=== PATIENT | male | born 1940 | race Caucasian/White ===

== ENCOUNTER 2018-07-16 09:09 | Day surgery (SDC) | payer OTHER, BC ==
[2018-07-13 16:05] VITALS: BMI 30.9
[2018-07-16 09:42] VITALS: TEMP 97.7
[2018-07-16] MEDS ORDERED: PROPOFOL 20 ML ONE (10:09)
[2018-07-16] MEDS ORDERED: LIDOCAINE HCL/PF 2% SDV 5ML VIAL ONE (10:09)
[2018-07-16] MEDS ORDERED: MIDAZOLAM HCL 2 MG/2 ML SINGLE DOSE VIAL ONE (10:09)
--- NOTE | 2018-07-16 10:47 | OP ---
Operative Note - Note: Operative Date: 07/16/18 Pre-Operative Diagnosis: gross hematuria/urethral stricture Operation: cystoscopy/urethral dilation Findings: 2 separate bladder tumors on posterior and right lateral salazar collectively measuring about 10 cm. bulbous urethral stricure dilated with sounds to 22 armenian Post-Operative Diagnosis: Other (bladder tumor) Surgeon: Jaiden Chandra Anesthesia: Local, Fractional
[2018-07-16 13:02] VITALS: BP 131/79; PULSE 61
--- NOTE | 2018-07-16 19:49 | OP ---
DATE OF OPERATION: 07/16/2018 PREOPERATIVE DIAGNOSIS: Gross hematuria and urethral stricture. POSTOPERATIVE DIAGNOSIS: Bladder tumor. ATTENDING: Naun Lee MD ANESTHESIA: Fractional with local. PROCEDURE: Cystoscopy and urethral dilation. DESCRIPTION OF PROCEDURE: The patient has a history of urethral stricture with attempt at cystoscopy in the office setting. The patient was brought in the operating room and placed in the supine position on the operating room table. IV sedation with local lidocaine jelly is utilized for urethral local anesthesia. Flexible cystoscopy was performed. A bulbous urethral stricture was encountered. Sounds were utilized, and the urethra was dilated to 22-Surinamese. The flexible cystoscope was then utilized, and the bladder was entered. Two bladder tumors each greater than 5 cm incised noted along the posterior and right lateral salazar. The bladder was noted to have 1 to 2+ bladder trabeculation with a 3+ obstructive prostate. Once the bladder was fully investigated, the cystoscope was removed. The patient has a history of a CAT scan in the last 2 months, which was negative for metastatic disease. The tumors appear localized at this time. The patient will be scheduled for a transurethral resection and vaporization of a bladder tumor at a later setting once medical clearance has been attained. NAUN LEE M.D. [id number]
== END 2018-07-16 12:45 | disposition home or self-care (01) ==
LOC: JASU-SURG 09:09
PROVIDERS: ATTEND Urology
PROC: 0T7D8ZZ Dilation of Urethra, Via Natural or Artificial Opening Endoscopic (ICD-10-PCS; principal; 2018-07-16 09:00)
DX: R31.0 Gross hematuria (principal); N35.8 Other urethral stricture; D41.4 Neoplasm of uncertain behavior of bladder
CPT/HCPCS: 82962

== ENCOUNTER 2018-09-17 06:31 | Day surgery (SDC) | payer OTHER, BC ==
[2018-08-30 20:58] VITALS: BMI 31.8
[~2018-09-17 06:31] MED LIST: ceFAZolin SODIUM 1 GM VIAL IVPB ONE
[2018-09-17] MEDS ORDERED: MIDAZOLAM HCL 2 MG/2 ML SINGLE DOSE VIAL ONE (07:28)
[2018-09-17] MEDS ORDERED: PROPOFOL 20 ML ONE ×2 (07:29→07:30)
[2018-09-17] MEDS ORDERED: SUCCINYLCHOLINE CHLORIDE 200 MG/10 ML VIAL ONE (07:30)
[2018-09-17] MEDS ORDERED: DESFLURANE GAS 240 ML BOTTLE IH ONE (08:10)
[2018-09-17] MEDS ORDERED: ePHEDrine SULFATE 50 MG/1 ML AMPULE ONE (08:43)
--- NOTE | 2018-09-17 09:23 | OP ---
Operative Note - Note: Operative Date: 09/17/18 Pre-Operative Diagnosis: Bladder Tumor Operation: transurethral resection and vaporization of bladder tumor/bladder biopsies Findings: posterior wall 5 cm lesion and 6-8 cm right lateral wall bladder tumor multiple biospies of tumor base performed Post-Operative Diagnosis: Same as Pre-op Surgeon: Jaiden Chandra Anesthesia: General Specimens Removed: bladder tumor Estimated Blood Loss (mls): 10 Drains & Tubes with Location: 20 kiswahili duenas catheter
[2018-09-17] MEDS ORDERED: PROMETHAZINE HCL 25 MG/1 ML VIAL IVPUSH PRN (09:30)
[2018-09-17] MEDS ORDERED: oxyCODONE HCL 5 MG TABLET PO PRN (09:30)
[2018-09-17] MEDS ORDERED: KETOROLAC TROMETHAMINE 15 MG/ML VIAL IVPUSH ONE ×2 (10:05→10:16)
[2018-09-17] MEDS ORDERED: oxyCODONE HCL 5 MG TABLET PO ONE (10:10)
[2018-09-17] MEDS ORDERED: oxyCODONE HCL 5 MG TABLET ONE (10:18)
[2018-09-17] MEDS ORDERED: KETOROLAC TROMETHAMINE 15 MG/ML VIAL ONE (10:18)
--- NOTE | 2018-09-17 11:15 | OP ---
DATE OF OPERATION: 09/17/2018 PREOPERATIVE DIAGNOSIS: Bladder tumor. POSTOPERATIVE DIAGNOSIS: Bladder tumor. PROCEDURE: Transurethral resection and vaporization of the bladder tumor with Bipolar system and multiple bladder biopsies. ATTENDING SURGEON: Naun Chandra MD ANESTHESIA: General. OPERATION: As follows, the patient was brought into the operating room and placed in a supine position on the operating room table. Preoperative antibiotics and anesthesia were administered without complications. The patient was then placed in the dorsal lithotomy position, prepped and draped in the usual sterile manner. Cystoscopy was performed, and a 5-cm posterior wall bladder tumor near the dome was noted. A right lateral wall tumor also towards the dome is appreciated. The right lateral wall tumor measures 6- to 8-cm. At this point, a loop element is utilized, and the bladder tumor was resected in both areas to the level of the muscle wall. Excellent hemostasis was obtained. Dysplasia is noted nearby the bladder tumor. Multiple biopsies about the posterior wall and lateral wall are performed in order to get deep muscle specimens. At this point, vaporization is performed in a larger area in order to ensure that any dysplastic areas that are close to the tumor are also destroyed. Vaporization is performed without complications to the level of the deep muscle. No complication noted. Excellent hemostasis was obtained. All bladder tumor fragments are removed from the bladder utilizing the Ellik evacuator. A 20-Hungarian Gambino catheter was placed to straight drainage at the end of the procedure, and the disposition of the patient is to the recovery room. NAUN LEE M.D. [id number]
[2018-09-17 16:06] VITALS: BP 144/84; PULSE 98; TEMP 98
--- NOTE | 2018-09-18 13:38 | PATH ---
Surgical Pathology Report Patient Name: MITZY TALAMANTES Med. Rec. #: [id number] /Age/Gender: 1940 (Age: 77) / M Account: [id number] Location: [facility] Taken: 09/17/2018 Received: 09/17/2018 Reported: 09/18/2018 Physicians: Jaiden Chandra Specimen(s) Received A: BLADDER TUMOR TISSUE B: RIGHT LATERAL WALL BLADDER TUMOR BIOPSY C: POSTERIOR WALL BLADDER TUMOR BIOPSY Clinical History Bladder tumor Final Diagnosis A. BLADDER, TUR: NON-INVASIVE LOW GRADE PAPILLARY UROTHELIAL CARCINOMA. NO FLAT UROTHELIAL CARCINOMA IN SITU IDENTIFIED. NO MUSCULARIS PROPRIA IDENTIFIED. B. 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 NO MUSCULARIS PROPRIA IDENTIFIED. C. BLADDER, POSTERIOR WALL, BIOPSY: BENIGN UROTHELIAL MUCOSA WITH CHRONIC INFLAMMATION. MUSCULARIS PROPRIA IS PRESENT. Comment: This case was discussed with Dr. Chandra on September 18, 2018. Electronically Signed Sebastian Armenta M.D. Gross Description A. Received in formalin labeled "bladder tumor tissue," is a 1.0 x 0.8 x 0.2 cm aggregate of kelly soft tissue fragments. The formalin is filtered and the specimen is entirely submitted in one cassette. B. Received in formalin labeled "right lateral wall bladder tumor," are 4 kelly-brown soft tissue fragments ranging from 0.3-0.5 cm in greatest dimension. The specimens are submitted in toto in one cassette. C. Received in formalin labeled "posterior wall bladder tumor biopsy," are 3 kelly-brown soft tissue fragments ranging from 0.3-0.4 cm in greatest dimension. The specimens are submitted in toto in one cassette. DL/09/17/2018 saudi09/17/2018
== END 2018-09-17 14:50 | disposition home or self-care (01) ==
LOC: JASU-SURG 06:31
PROVIDERS: ATTEND Urology
PROC: 0T5B8ZZ Destruction of Bladder, Via Natural or Artificial Opening Endoscopic (ICD-10-PCS; principal; 2018-09-17 08:00)
DX: C67.8 Malignant neoplasm of overlapping sites of bladder (principal); I10 Essential (primary) hypertension; E11.9 Type 2 diabetes mellitus without complications
CPT/HCPCS: 82962; 88305-TC; 88307-TC; 94760

== ENCOUNTER 2023-06-05 04:14 | Day surgery (SDC) | payer OTHER, BC ==
[2023-06-01 09:07] VITALS: BMI 35.4
[2023-06-05] MEDS ORDERED: PROPOFOL 20 ML ONE (10:57)
[2023-06-05] MEDS ORDERED: ceFAZolin SODIUM 1 GM VIAL IVPB ONE (11:15)
[2023-06-05] MEDS ORDERED: GENTAMICIN SO4 80 MG/2 ML VIAL IVPB ONE (11:15)
[2023-06-05] MEDS ORDERED: ONDANSETRON 4 MG/2 ML VIAL IVPUSH PRN (11:57)
[2023-06-05] MEDS ORDERED: oxyCODONE HCL 5 MG TABLET PO PRN (11:57)
[2023-06-05] MEDS ORDERED: LACTATED RINGERS SOLUTION 1,000 ML IV SCH (12:00)
[2023-06-05 12:38] VITALS: RESP 18
[2023-06-05 14:52] VITALS: BP 124/58; PULSE 68; TEMP 97.7
== END 2023-06-05 14:00 | disposition home or self-care (01) ==
LOC: JASU-SURG 04:14
PROVIDERS: ATTEND Urology
PROC: 0T7D7ZZ Dilation of Urethra, Via Natural or Artificial Opening (ICD-10-PCS; 2023-06-05)
PROC: 0T7D8ZZ Dilation of Urethra, Via Natural or Artificial Opening Endoscopic (ICD-10-PCS; principal; 2023-06-05 11:00)
DX: N35.919 Unspecified urethral stricture, male, unspecified site (principal); N47.1 Phimosis; N40.0 Benign prostatic hyperplasia without lower urinary tract symptoms; N48.89 Other specified disorders of penis; N32.89 Other specified disorders of bladder; Z85.46 Personal history of malignant neoplasm of prostate
CPT/HCPCS: 82962; 94760